=== PATIENT | female | born 1995 | race Caucasian/White ===

== ENCOUNTER 2021-05-08 00:48 | Inpatient (IN) ==
[2021-05-08] MEDS ORDERED: LACTATED RINGER'S 1,000 ML IV ONE (01:03)
[2021-05-08 02:09] LABS: Hematocrit (blood only) 41.3 % (37-47); Hemoglobin 13.9 g/dL (12.0-16.0); Mean Corpuscular Hemoglobin 31.2 pg (25-34); Mean Corpuscular Hgb Conc 33.7 g/dL (32-36); Mean Corpuscular Volume 92.6 fL (80-100); Mean Platelet Volume 13.2 fL (7.4-10.4); Platelet Count 166 K/uL (130-400); RDW Coefficient of Variation 13.5 % (11.5-14.5); RDW Standard Deviation 45.7 fL (36.4-46.3); Red Blood Count 4.46 M/uL (4.2-5.4); White Blood Count 10.87 K/uL (4.8-10.8)
[2021-05-08] MEDS: LACTATED RINGER'S 1,000 ML IV PRN ×3 (02:57→18:00)
[2021-05-08] MEDS: BUTORPHANOL TARTRATE 1 MG/ML VIAL IV PRN ×2 (03:29→05:12)
[2021-05-08] MEDS ORDERED: ePHEDrine sulfate 50 MG/ML AMP ONE (08:34)
[2021-05-08] MEDS ORDERED: SODIUM CHLORIDE 0.9% INJ 10 ML VIAL ONE (08:35)
[2021-05-08] MEDS ORDERED: BUPIVACAINE 0.25% 30 ML VIAL ONE (08:35)
[2021-05-08] MEDS ORDERED: fentaNYL 2MCG/ML ROPIVACAINE 1.25MG/ML 100 ML BAG EPI ONE (08:35)
[2021-05-08] MEDS ORDERED: fentaNYL citrate 100 MCG/2 ML VIAL ONE (08:35)
[2021-05-08] MEDS ORDERED: diphenhydrAMINE 50 MG/ML VIAL IV PRN ×2 (08:52→22:36)
[2021-05-08] MEDS ORDERED: ePHEDrine sulfate 50 MG/ML AMP IV PRN ×2 (08:52→22:36)
[2021-05-08] MEDS ORDERED: NALBUPHINE HCL INJ 10 MG/ML AMP IV PRN ×2 (08:52→22:36)
[2021-05-08] MEDS ORDERED: NALOXONE HCL 0.4 MG/1 ML VIAL/CARP IV PRN ×2 (08:52→22:36)
[2021-05-08] MEDS ORDERED: NALOXONE HCL 1 MG in SODIUM CHLORIDE 0.9% 1000ML 1,000 ML IV PRN ×2 (08:52→22:36)
[2021-05-08] MEDS ORDERED: fentaNYL 2MCG/ML ROPIVACAINE 1.25MG/ML 100 ML BAG EPI PRN (08:52)
--- NOTE | 2021-05-08 08:52 | Anesthesiology Consultation ---
Date of Service May 08, 2021 Assessment & Plan (1) Encounter for pre-operative examination: Chart Review Chart Review: Patient NOT seen in Pre Admission Testing and Acceptable Risk for Labor Epidural Consults Requested none History Height/Weight Height: 5 ft 2 in Weight: 90.718 kg Allergies Allergy/AdvReac Type Severity Reaction Status Date / Time No Known Allergies Allergy Unverified 05/07/21 14:53 Medications Home Medications Medication Instructions Recorded Confirmed Last Taken prenat.vits,trey,[id number] 1 tab PO DAILY 05/07/21 05/08/21 05/07/21 08:00 Active Medications Generic Name Dose Route Start Last Admin Trade Name Freq PRN Reason Stop Dose Admin Butorphanol Tartrate 1 mg 05/08/21 01:40 05/08/21 05:12 Butorphanol Tartrate 1 Mg/Ml Vial IV 06/07/21 01:39 1 mg Q1HWA PRN Administration Pain Lactated Ringer's 1,000 mls @ 125 mls/hr 05/08/21 01:37 05/08/21 02:57 Lr IV 05/10/21 01:36 125 mls/hr .Q8H PRN Administration L&D Protocol Protocol Past Medical History Medical History No known health problems Past Surgical History Surgical History No history of previous surgery Social History Smoking Status: Never smoker Hx Alcohol Use: No Hx Substance Use: No substance use type: does not use Physical Exam Vital Signs Last Vital Signs Temp 98.1 F 05/08/21 07:12 Pulse 113 H 05/08/21 07:11 Resp 20 05/08/21 07:12 BP 139/79 05/08/21 07:11 Testing Laboratory Results 05/08/21 01:54
[2021-05-08] MEDS ORDERED: OXYTOCIN 30 UNITS/500 ML BAG IV PRN (09:47)
[2021-05-08] MEDS ORDERED: CITRIC ACID/SODIUM CITRATE 15 ML UDC ONE (21:03)
--- NOTE | 2021-05-08 21:20 | Anesthesiology Consultation ---
Date of Service May 08, 2021 Assessment & Plan Chart Review Chart Review: Acceptable Risk for Surgery and Patient NOT seen in Pre Admission Testing Consults Requested none ASA ASA2E Proposed Anesthesia Anesthesia Type: Labor Epidural Risk / Benefits Reviewed With: PT / POA / Parent / Guardian, Accepts Plan and Informed Consent Obtained History Height/Weight Height: 5 ft 2 in Weight: 90.718 kg Allergies Allergy/AdvReac Type Severity Reaction Status Date / Time No Known Allergies Allergy Unverified 05/07/21 14:53 Medications Home Medications Medication Instructions Recorded Confirmed Last Taken prenat.vits,trey,[id number] 1 tab PO DAILY 05/07/21 05/08/21 05/07/21 08:00 Active Medications Generic Name Dose Route Start Last Admin Trade Name Freq PRN Reason Stop Dose Admin Butorphanol Tartrate 1 mg 05/08/21 01:40 05/08/21 05:12 Butorphanol Tartrate 1 Mg/Ml Vial IV 06/07/21 01:39 1 mg Q1HWA PRN Administration Pain Lactated Ringer's 1,000 mls @ 125 mls/hr 05/08/21 01:37 05/08/21 18:00 Lr IV 05/10/21 01:36 125 mls/hr .Q8H PRN Administration L&D Protocol Protocol Oxytocin 30 units in 500 mls @ 16 mls/hr 05/08/21 09:47 05/08/21 17:05 Pitocin IV 05/10/21 09:46 0.96 units/hr .Q24H PRN 16 mls/hr Labor Induction/Augmentation Titration Protocol 0.96 UNITS/HR Ropivacaine 100 ml 05/08/21 08:52 05/08/21 16:11 Fentanyl 2mcg/Ml Ropivacaine 1.25mg/Ml 100 Ml Bag EPI 05/09/21 08:51 100 ml PRN PRN Administration Pain R/T Labor Protocol Past Medical History Medical History No known health problems Exercise / Class Metabolic Activity II 4-5 Yardwork/Stairs/Walk up hill Past Surgical History Surgical History No history of previous surgery Past Anesthesia History No Hx of Anesthesia Complications and No Family Hx of Anesthesia Complications History of PONV No Hx of PONV and No Hx of Motion Sickness Social History Smoking Status: Never smoker Hx Alcohol Use: No Hx Substance Use: No substance use type: does not use Physical Exam Vital Signs Last Vital Signs Temp 98.1 F 05/08/21 18:55 Pulse 129 H 05/08/21 21:18 Resp 16 05/08/21 18:55 BP 158/66 H 05/08/21 21:08 Pulse Ox 92 05/08/21 21:18 ENMT Mouth: no dentition abnormality Thyromental Distance: > or= 3.5 Finger Breadths Mallampati Class: II Neck normal visual inspection Respiratory normal respiratory effort Auscultation: lungs clear to auscultation bilaterally Cardiovascular Rate/Rhythm: regular rate and regular rhythm Testing Laboratory Results 05/08/21 01:54
[2021-05-08] MEDS ORDERED: LIDOCAINE 2%/EPINEPHRINE 1:200,000 20 ML SDV ONE (21:28)
[2021-05-08] MEDS ORDERED: ONDANSETRON INJ 2 MG/ML 2 ML VIAL ONE (21:28)
[2021-05-08] MEDS ORDERED: MoRPHine SULFATE PF 1 MG/ML 10 ML AMP/VIAL ONE (21:28)
[2021-05-08] MEDS ORDERED: CITRIC ACID/SODIUM CITRATE 15 ML UDC PO SCH (21:45)
[2021-05-08] MEDS ORDERED: cefOXitin 2,000 MG in DEXTROSE 5% 50 ML IV SCH (21:45)
--- NOTE | 2021-05-08 22:12 | History and Physical Report ---
DATE OF ADMISSION: 05/08/2021 CHIEF COMPLAINT: Intrauterine at 41 weeks' gestation, cephalopelvic disproportion, t achycardia. HISTORY OF PRESENT ILLNESS: The patient is a 26-year-old 1, para 0, followed in our office f or care and delivery, had an uneventful course. Her due date is 05/01/2021. When s shaye became close to her due date, her membranes were stripped several times in the office and she even tually came in in spontaneous labor. The night before, she was on maternity floor for several hours a nd was discharged home with her cervix being about 2 cm dilated. Once she got home, she started to h ave more contractions. She started to have vomiting. She came back to the hospital, she was about 4 cm. She contracted throughout the night. The following morning at about 5:00 a.m., she was 6 cm. W sherwin Garcia checked her at about 8:00 a.m., ruptured her membranes. Fluid was clear and then we started au gmenting her with IV Pitocin. Pitocin was turned up through the day and eventually we had a failure t o descend. The vertex only ever got as low as about a -1, and the cervix had an anterior lip, which w ould not clear. We tried pushing it back several times, we had pushed it back, but the head would co me down even with a contraction, so she was 6 cm dilated at 5:00 a.m. in the morning and she was unab le to push effectively and the judgment was made that the pelvis was too small regardless, primarily due to failure to descend. She was scheduled for a primary low segment section. By the obed farmer we made this decision, the baby started to exhibit persistent tachycardia. ALLERGIES: She has no known drug allergies. PAST SURGICAL HISTORY: No surgery. PAST MEDICAL HISTORY: No history of rheumatic fever, heart disease, heart murmur, diabetes, or tuber culosis. SOCIAL HISTORY: No smoking, no alcohol intake. FAMILY HISTORY: Mom is 48 in good health. Father 51 in good health. One younger brother in good he alth. REVIEW OF SYSTEMS: HEAD: No symptoms of frequent or severe headaches. EYES: No symptoms of blurred vision or double vision. EARS: No symptoms of frequent ear infection or difficulty hearing. NOSE: No symptoms of frequent nosebleeds or difficulty breathing through her nose. THROAT: No symptoms of frequent or severe sore throat or difficulty swallowing. RESPIRATORY: No history of asthma, chest pain, or shortness of breath. PHYSICAL EXAMINATION: GENERAL: A well-developed, well-nourished 26-year-old white female, in distress due to contractions. EYES: Conjunctivae are pink. Sclerae white, no evidence of jaundice. ENT: Normal light reflex bilaterally. LUNGS: Clear to auscultation and percussion. No wheezes, rales or rhonchi appreciated. HEART: Regular rhythm. S1 and S2 are normal. BREASTS: Normal. ABDOMEN: Revealed a term-sized fetus. Estimated weight 7-8 pounds. MUSCULOSKELETAL: No CVA tenderness, no calf tenderness. PELVIC: Vertex presentation, large amount of molding, -1 station. IMPRESSIONS OF THIS CASE: tachycardia, arrest of labor secondary to cephalopelvic disproportio n. Job ID: [id number]
[2021-05-08] MEDS ORDERED: MoRPHine SULFATE PF 1 MG/ML 10 ML AMP/VIAL EPI ONE (22:36)
[2021-05-08] MEDS ORDERED: ONDANSETRON INJ 2 MG/ML 2 ML VIAL IV PRN (22:36)
[2021-05-08] MEDS ORDERED: LACTATED RINGER'S 500 ML IV PRN (22:36)
[2021-05-08] MEDS ORDERED: NALOXONE HCL 0.08 MG in SYRINGE 1.8 ML IV PRN (22:36)
[2021-05-08] MEDS ORDERED: HYDROmorphone INJ 0.5 MG/0.5 ML SYR IV PRN (22:36)
[2021-05-08] MEDS ORDERED: NO NARCOTICS OR SEDATIVES SCH (22:45)
[2021-05-08] MEDS ORDERED: DC INTRASPINAL MORPHINE SCH (22:45)
[2021-05-08] MEDS ORDERED: SODIUM CHLORIDE 0.9% 1000ML 1,000 ML IV SCH (22:45)
[2021-05-08] MEDS ORDERED: OXYTOCIN 10 UNITS/ML VIAL IM ONE (22:54)
[2021-05-08] MEDS ORDERED: OXYTOCIN 10 UNITS/ML VIAL ONE (22:56)
[2021-05-08] MEDS ORDERED: KETOROLAC 30 MG/ML VIAL ONE (22:56)
[2021-05-08] MEDS ORDERED: BENZOCAINE 20% AER SPR 82.5 GM CAN EXT PRN (23:09)
[2021-05-08] MEDS ORDERED: DIPHTHERIA/TETANUS/PERTUSSIS 0.5 ML SYR/VIAL IM ONE (23:09)
[2021-05-08] MEDS ORDERED: SENNA 8.6 MG TAB PO PRN (23:09)
[2021-05-08] MEDS ORDERED: SUPERCREAM 0.870% 15 GM JAR EXT PRN (23:09)
[2021-05-08] MEDS ORDERED: HYDROCORTISONE ACETATE 25 MG SUPP PR PRN (23:09)
[2021-05-08] MEDS ORDERED: MAGNESIUM HYDROXIDE SUSP 30 ML UDC PO PRN (23:09)
--- NOTE | 2021-05-08 23:09 | Post Operative Brief Note ---
Immediate Post Op Note v1 Date of Surgery May 08, 2021 Pre & Post Diagnosis Operation Date: 05/08/21 21:20 Pre-Op Diagnosis: 1.) Cephalopelvic Disproportion 2.) Tachycardia 3.) Failure to Progress Post-Op Diagnosis: Same as Pre Op I identified the patient and participated in the time-out.: Yes Procedure Operation Date: 05/08/21 21:20 Actual Procedures p Primary Section for the of a live male child at 2230. - Kyle Crews MD Surgeon Kyle Crews MD Store Coordinator Dr Vides Estimated Blood Loss 600 Findings Consistent with Post-Op Diagnosis nuchal cord x 1 Drains Hull Catheter Anesthesia Type L&D Only Epidural Exists Complications none Disposition Accompanied Patient To Recovery: No
[2021-05-08] MEDS ORDERED: OXYTOCIN 20 UNITS in LACTATED RINGER'S 20 ML IV SCH (23:15)
[2021-05-08] MEDS ORDERED: LACTATED RINGER'S 1,000 ML IV SCH (23:15)
--- NOTE | 2021-05-08 23:30 | Operative Report (OR) ---
DATE OF PROCEDURE: 05/08/2021 PROCEDURE: Primary section. INDICATIONS FOR SURGERY: Tachycardia, cephalopelvic disproportion. PREOPERATIVE DIAGNOSES: Intrauterine at 41 weeks' gestation, cephalopelvic disproportion, tachycardia. POSTOPERATIVE DIAGNOSES: Intrauterine at 41 weeks' gestation, cephalopelvic disproportion, tachycardia; delivered a live male . SURGEON: Alma Crews MD. ROD DRAWER: Conrad Vides MD. ESTIMATED BLOOD LOSS: 600 mL. ANESTHESIA: Epidural. OPERATIVE FINDINGS AND PROCEDURE: The patient was brought to the OR table, correctly identified by a rmband and conversation. The epidural was topped off. Hull catheter was inserted aseptically in th e bladder, connected to gravity drainage. Compression stockings were applied. The patient's lower a bdomen was painted with an alcohol based sterilizing solution, which was allowed to dry for 3 minutes and draped in the usual sterile fashion. Level of anesthesia was tested and found to be adequate. A Pfannenstiel incision was made and carried down to the anterior fascia by sharp dissection. Hemost asis was secured by electrocauterization. Fascia was incised transversely from the underl mary muscle by blunt and sharp dissection. Recti muscles were in the midline exposing the peritoneum, which was carefully raised and entered. A retractor was placed into the abdomen, exposin g the lower uterine segment. Incision was made above the vesicouterine fold. Bladder was undermined bluntly, pushed out of the operative field. Lower uterine segment was scored with a knife and entered bluntly with the scissors. Clear amniotic fluid was seen at this time. The hand was placed into the pelvic cavity and the head was easily brou ght out through the uterine incision. There was a nuchal cord x1, which was reduced over the head. I nfant was delivered without difficulty, suctioned through the mouth and the nose. Cord was stripped, clamped and cut. cried spontaneously, was attended to by the speeder worker who was scrubbed a nd present at the time of delivery. Cord blood was taken. The placenta was removed manually. Uterine cavity was cleansed with a clean sponge. 10 units of Pitocin was injected into the myometriu m. Then, the uterus was brought out through the incision. The myometrial defect was identified and a layer of heavy duty chromic was used to approximate the muscular layer and then a suture of heavy d uty Vicryl was approximated over this layer to approximate the fascial layer and then 4 interrupted f [id number] sutures of Vicryl was used to complete the approximation. Following this, hemostasis was excellent. There was no hematoma formation. Peritoneum was approximated with a continuous 3-0 chromic. This restored the integrity of the vesicou terine fold. Pelvis was cleansed of all blood clots and debris. Uterus, tubes, and ovaries were rein serted into the abdomen. A careful anatomical approximation of the anterior abdominal wall was perfo rmed. The peritoneum was closed with a mattress suture of chromic catgut. Recti muscles were approx imated with interrupted [id number]-[id number] suture chromic catgut. Fascia was closed with continuous int erlocking suture of Vicryl on each side, tied in the midline. Subcutaneous was approximated with a r unning plain and skin edges approximated with staple clips. The patient tolerated this procedure wel l and left the OR in good condition. Job ID: [id number]
--- NOTE | 2021-05-09 00:08 | Anesthesia Procedure Note ---
Date of Service May 09, 2021 Anesthesia Post Epidural Note Vital Signs Vital Signs: Temp Pulse Resp BP Pulse Ox 97.3 F L 106 H 20 121/63 95 05/08/21 23:45 05/09/21 00:05 05/08/21 23:55 05/09/21 00:05 05/09/21 00:04 Pain Intensity Abdomen: Pain Intensity: 3 Notes Mental Status: alert / awake / arousable and participated in evaluation Nausea / Vomiting: adequately controlled Pain: adequately controlled Airway Patency, RR, SpO2: stable & adequate BP & HR: stable & adequate Hydration State: stable & adequate Neuraxial Anesthesia: was administered and sensory block is resolving Anesthetic Complications: no major complications apparent and Pt Satisfied with anesthetic care Epidural: Removed without complications and With tip intact
[2021-05-09] MEDS: OXYTOCIN 20 UNITS in LACTATED RINGER'S 1,000 ML IV SCH ×2 (00:41→11:01)
[2021-05-09] MEDS ORDERED: ACETAMINOPHEN 325 MG TAB PO PRN (04:17)
[2021-05-09] MEDS: KETOROLAC 30 MG/ML VIAL IV PRN ×2 (04:50→10:20)
[2021-05-09] MEDS ORDERED: LACTATED RINGER'S 500 ML IV ONE ×3 (06:38→18:05)
[2021-05-09 06:51] LABS: Hematocrit (blood only) 32.3 % (37-47); Hemoglobin 10.7 g/dL (12.0-16.0); Mean Corpuscular Hemoglobin 30.9 pg (25-34); Mean Corpuscular Hgb Conc 33.1 g/dL (32-36); Mean Corpuscular Volume 93.4 fL (80-100); Mean Platelet Volume 12.9 fL (7.4-10.4); Platelet Count 150 K/uL (130-400); RDW Coefficient of Variation 13.8 % (11.5-14.5); RDW Standard Deviation 46.7 fL (36.4-46.3); Red Blood Count 3.46 M/uL (4.2-5.4); White Blood Count 11.52 K/uL (4.8-10.8)
[2021-05-09 06:52] LABS: Basophils # (auto) 0.01 K/uL (0-0.2); Basophils % (auto) 0.1 %; Immature Granulocytes # (auto) 0.03 K/uL (0.00-0.02); Immature Granulocytes % (auto) 0.3 %; Lymphocytes # (auto) 1.53 K/uL (1.2-3.4); Lymphocytes % (auto) 13.3 %; Monocytes # (auto) 0.69 K/uL (0.11-0.59); Neutrophils # (auto) 9.26 K/uL (1.4-6.5); Neutrophils % (auto) 80.3 %
[2021-05-09] MEDS: PRENATAL VITAMIN 1 TAB PO SCH (07:59)
[2021-05-09] MEDS: FERROUS SULFATE 325 MG TAB PO SCH (07:59)
[2021-05-09] MEDS: DOCUSATE SODIUM 100 MG CAP PO SCH ×2 (07:59→21:38)
[2021-05-09] MEDS: SIMETHICONE 80 MG CHEW PO SCH ×4 (07:59→21:37)
--- NOTE | 2021-05-09 11:26 | Obstetrical Progress Note ---
Date of Service May 09, 2021 Assessment & Plan Admission and Anticipated Discharge Date Admission Date: May 08, 2021 Subjective abdomen soft and non tender passing flatus bandage is clean and dry no calf tenderness vaginal bleeding scant hgb 10.7 Results & Data ([facility]) Vital Signs (Past 12 Hours) Vital Signs Temp Pulse Pulse Resp BP BP Pulse Ox 05/09/21 11:00 18 98 05/09/21 10:00 18 97 05/09/21 09:00 36.5 C 86 18 102/67 96 05/09/21 08:00 18 96 05/09/21 06:47 18 92 05/09/21 05:30 18 96 05/09/21 04:30 18 98 05/09/21 03:28 37.2 C 92 H 18 94/56 L 93 05/09/21 02:30 16 94 05/09/21 01:30 18 96 05/09/21 01:14 100 H 117/56 L 05/09/21 01:09 102 H 95 05/09/21 01:05 107 H 124/60 05/09/21 01:04 108 H 94 05/09/21 00:59 110 H 95 05/09/21 00:54 117 H 96 05/09/21 00:49 109 H 95 05/09/21 00:45 112 H 157/67 H 05/09/21 00:44 108 H 96 05/09/21 00:39 110 H 94 05/09/21 00:35 110 H 145/69 H 05/09/21 00:34 111 H 95 05/09/21 00:29 115 H 95 05/09/21 00:25 111 H 139/72 05/09/21 00:24 119 H 96 05/09/21 00:19 95 H 95 05/09/21 00:15 100 H 123/55 L 05/09/21 00:14 106 H 95 05/09/21 00:09 99 H 95 05/09/21 00:05 106 H 18 121/63 05/09/21 00:04 109 H 95 05/09/21 00:00 114 H 94 05/08/21 23:59 115 H 96 05/08/21 23:55 108 H 20 119/60 05/08/21 23:54 107 H 95 05/08/21 23:52 107 H 94 05/08/21 23:49 108 H 96 05/08/21 23:45 36.3 C L 106 H 16 127/58 L 05/08/21 23:44 109 H 96 05/08/21 23:39 119 H 96 05/08/21 23:35 104 H 18 123/62 05/08/21 23:34 107 H 97 05/08/21 23:29 109 H 98 05/08/21 23:25 108 H 20 139/60
[2021-05-09] MEDS ORDERED: MEPERIDINE HCL 50 MG/ML CARP IV PRN (16:36)
[2021-05-09] MEDS ORDERED: PROMETHAZINE HCL 25 MG in SODIUM CHLORIDE 0.9% 50 ML IV PRN (16:36)
[2021-05-09] MEDS ORDERED: ZOLPIDEM TARTRATE 5 MG TAB PO PRN (16:36)
[2021-05-09] MEDS ORDERED: diphenhydrAMINE 50 MG/ML VIAL IV PRN (16:36)
[2021-05-09] MEDS ORDERED: ONDANSETRON INJ 2 MG/ML 2 ML VIAL IV PRN (16:36)
[2021-05-09] MEDS ORDERED: KETOROLAC 30 MG/ML VIAL IV PRN (16:36)
[2021-05-09] MEDS ORDERED: diphenhydrAMINE Capsule 25 MG CAP PO PRN (16:36)
[2021-05-09] MEDS: oxyCODONE/ACETAMINOPHEN 5mg/325mg TAB PO PRN ×2 (18:24→23:15)
[2021-05-09] MEDS: IBUPROFEN 600 MG TAB PO PRN ×2 (18:24→23:14)
[2021-05-09] MEDS ORDERED: bisacodyL 5 MG TABEC PO SCH (20:00)
[2021-05-10] MEDS: oxyCODONE/ACETAMINOPHEN 5mg/325mg TAB PO PRN ×3 (03:34→12:09)
[2021-05-10] MEDS: IBUPROFEN 600 MG TAB PO PRN ×3 (03:34→12:09)
[2021-05-10 06:44] LABS: Hematocrit (blood only) 30.6 % (37-47)
[2021-05-10] MEDS: FERROUS SULFATE 325 MG TAB PO SCH (07:51)
[2021-05-10] MEDS: SIMETHICONE 80 MG CHEW PO SCH ×2 (07:51→12:08)
[2021-05-10] MEDS: DOCUSATE SODIUM 100 MG CAP PO SCH (07:51)
[2021-05-10] MEDS: PRENATAL VITAMIN 1 TAB PO SCH (07:52)
--- NOTE | 2021-05-10 09:06 | Obstetrical Progress Note ---
Date of Service May 10, 2021 Assessment & Plan Admission and Anticipated Discharge Date Admission Date: May 08, 2021 Subjective abdomen soft and non tender bandage removed incision is clean and dry no calf tenderness ambulating well vaginal bleeding scant hgb 10.0 Results & Data ([facility]) Vital Signs (Past 12 Hours) Vital Signs Temp Pulse Resp BP Pulse Ox 05/09/21 23:30 36.6 C 88 16 105/70 97
--- NOTE | 2021-05-10 10:07 | Discharge Summary (DS) ---
DATE OF ADMISSION: 05/08/2021 DATE OF DISCHARGE: HOSPITAL COURSE: Deana was followed in our office for care and delivery. She went to term, actually went over her due date. Her membranes were stripped several times in the office and this w as successful in stimulating the onset of labor. She was basically admitted in labor. The day that macey farmer was admitted, she was seen in the afternoon. She walked around for a while, did not have many cont ractions, was sent home. A couple of hours after being sent home, she started to vomit and she came b ack. She was started on IV fluids. The following morning, she was about 6 cm at about 5:00 a.m. in t he morning. When I arrived on maternity, I then ruptured her membranes. Fluid was clear, and then f or the entire day, she had Pitocin-augmented contractions that were frequent and of good intensity, a nd basically, she got to be fully dilated with a slight rim, the head did not come down. We waited a long time for the rim to clear. We tried different positions. She tried pushing and basically, she was diagnosed with cephalopelvic disproportion, taken to the OR where she underwent primary low segm ent section under epidural anesthesia. Preoperative hemoglobin was 13.9. At the time of dis charge, her hemoglobin was 10.0. Estimated blood loss at the time of surgery was 600 mL. Postoperativ ben, she did well. She remained afebrile. Her bowel sounds returned rapidly. At the time of dischar ge, she was ambulating well, eating well. Pain was well controlled with a combination of Percocet an d Motrin. She was told to return to the office for removal of adilson and to call if she had any sym ptoms of temperature or heavy bleeding. Job ID: [id number]
[2021-05-10] MEDS ORDERED: bisacodyL 10 MG SUPP PR PRN (23:09)
== END 2021-05-10 14:00 | disposition home or self-care (01) | DRG 788 ==
LOC: OPB 00:48 → 4S1 00:50 → 4S2 05-09 01:20